=== PATIENT | male | born 1965 | race Caucasian/White ===

== ENCOUNTER 2020-12-17 06:24 | Day surgery (SDC) | payer BC ==
[~2020-12-17] VITALS: Ht 170.2 cm; Wt 79.8 kg
[2020-12-17 06:51] VITALS: BP 123/74; PULSE 80; TEMP 98.6
[2020-12-17] MEDS ORDERED: LIPITOR 10MG10 MG PO (07:04)
[2020-12-17] MEDS ORDERED: ZESTRIL30 MG PO (07:04)
--- NOTE | 2020-12-17 07:06 | NUR ---
PATIENT BECAME PALE, LIGHT HEADED AND DIAPHORETIC
[2020-12-17 08:25] VITALS: BP 99/57; PULSE 82; TEMP 97.4
--- NOTE | 2020-12-17 08:25 | NUR ---
Patient arrives back to [facility] alert, denies pain or nausea. Patient ambulated from cart to chair with standby assist and without any complications. Patient monitor applied, vitals stable. Patient resting in chair comfortably with call light in reach.
--- NOTE | 2020-12-17 08:30 | NUR ---
Dr Goldstein into see patient at this time to go over procedure resuts.
--- NOTE | 2020-12-17 08:35 | NUR ---
Patient given muffin and coffee at this time. Vitals stable.
[2020-12-17 08:40] VITALS: BP 98/61; PULSE 77
--- NOTE | 2020-12-17 08:50 | NUR ---
Patient tolerated muffin and coffee without any nausea. Vitals stable.
[2020-12-17 08:55] VITALS: BP 98/53; PULSE 72
--- NOTE | 2020-12-17 09:05 | NUR ---
Dismissal instructions gone over with patient. Patient voices understanding and all questions answered.
--- NOTE | 2020-12-17 09:10 | NUR ---
Patient discharged to private vehicle at patient enterance via wheelchair without any complications. Patient and patient's spouse leave thanking staff for services.
== END 2020-12-17 09:10 | disposition home or self-care (01) ==
LOC: SDCO 06:24
DX: Z12.11 Encounter for screening for malignant neoplasm of colon (principal); E88.81 Metabolic syndrome and other insulin resistance; E66.3 Overweight; I10 Essential (primary) hypertension; E78.5 Hyperlipidemia, unspecified; G89.29 Other chronic pain; Z20.822 Contact with and (suspected) exposure to COVID-19; Z79.899 Other long term (current) drug therapy; Z79.82 Long term (current) use of aspirin; Z87.891 Personal history of nicotine dependence
CPT/HCPCS: J2704; J7030